=== PATIENT | male | born 1985 | race Caucasian/White ===

== ENCOUNTER 2019-01-30 17:05 | Emergency (ER) | payer SELFPAY ==
[2019-01-30] MEDS ORDERED: Promethazine HCl 25 MG/ML VIAL ONE (17:35)
[2019-01-30] MEDS ORDERED: Morphine 4 MG/ML VIAL ONE (17:37)
[2019-01-30] MEDS ORDERED: Pantoprazole 40 MG VIAL ONE (17:37)
[2019-01-30] MEDS ORDERED: Sodium Chloride 0.9% 1,000 ML ONE (17:39)
[2019-01-30 17:43] LABS: #Basophils 0.1 thou/uL (0.0-0.2); #Lymphocytes 2.3 thou/uL (1.20-3.40); #Monocytes 0.5 thou/uL (0.11-0.59); #Neutrophils 8.2 thou/uL (1.40-6.50); %Basophils 0.7 % (0.0-1.0); %Eosinophils 0.2 % (0.0-10.0); %Lymphocytes 20.8 % (21.0-51.0); %Monocytes 4.8 % (0.0-10.0); %Neutrophils 73.5 % (42.0-75.0); Hemoglobin 17.3 g/dL (14.0-18.0); Mean Corpuscular HGB CONC 33.7 g/dL (32.0-36.0); Mean Corpuscular Hemoglobin 29.8 pg (27.0-31.0); Mean Corpuscular Volume 88.4 fL (78.0-98.0); Mean Platelet Volume 10.6 fL (7.4-10.4); Platelet Count 275 thou/uL (130-400); RBC Distribution Width 10.9 % (11.5-14.5); Red Blood Cell (RBC) Count 5.82 mill/uL (4.70-6.10); White Blood Cell (WBC) Count 11.2 thou/uL (4.8-10.8)
[2019-01-30 17:58] LABS: Prothrombin Time 13.5 SEC (12.0-14.7)
[2019-01-30 17:59] LABS: PTT 27.9 SEC (22.9-36.1)
[2019-01-30 18:07] LABS: ALT (SGPT) 101 U/L (8-55); Albumin 5.3 g/dL (3.5-5.0); Alkaline Phosphatase 80 U/L (40-110); Anion Gap 20 mmol/L (10-20); BUN (Urea Nitrogen) 17 mg/dL (8.9-20.6); CK (CPK) 196 U/L (30-200); Calc. Creatinine Clearance 0 mL/min (70-130); Calcium 10.1 mg/dL (7.8-10.44); Carbon Dioxide 22 mmol/L (22-29); Chloride 103 mmol/L (98-107); Estimated GFR-MDRD 64; Globulin 3.4 g/dL (2.4-3.5); Glucose 116 mg/dL (70-105); Lipase 22 U/L (8-78); Potassium 4.3 mmol/L (3.5-5.1); Protein, Total 8.7 g/dL (6.0-8.3); Sodium 141 mmol/L (136-145)
[2019-01-30] MEDS ORDERED: Benzocaine 20% Spray 60 ML CAN ONE (18:10)
[2019-01-30 18:27] LABS: AST (SGOT) 57 U/L (5-34)
--- NOTE | 2019-01-30 19:04 | RAD ---
PORTABLE CHEST: 01/30/19 HISTORY: Abdominal pain. Lungs are clear. Heart and mediastinum appear normal. An NG tube passes through the EG junction. IMPRESSION: No acute chest finding. POS: OFF
== END 2019-01-30 20:10 | disposition left against medical advice (07) ==
LOC: NAV ERS 17:05
DX: K25.4 Chronic or unspecified gastric ulcer with hemorrhage (principal); F41.9 Anxiety disorder, unspecified; F32.9 Major depressive disorder, single episode, unspecified; F17.220 Nicotine dependence, chewing tobacco, uncomplicated; Z79.899 Other long term (current) drug therapy
CPT/HCPCS: 71045; 80053; 82550; 83690; 84484; 85025; 85610; 85730; 96365; 96375; C9113; J2270; J2550; J7050

== ENCOUNTER 2024-03-30 22:25 | Emergency (ER) | payer SELFPAY ==
[2024-03-30] MEDS ORDERED: Sulfameth/Trimethoprim DS 800-160mg TAB ONE (22:56)
== END 2024-03-30 23:15 | disposition home or self-care (01) ==
LOC: NAV ERS 22:25
DX: L02.01 Cutaneous abscess of face (principal); F17.220 Nicotine dependence, chewing tobacco, uncomplicated
CPT/HCPCS: 10060; 87070; 87205

== ENCOUNTER 2025-01-13 13:50 | Emergency (ER) | payer SELFPAY ==
[2025-01-13] MEDS ORDERED: Ketorolac Tromethamine 30 MG (1 mL) VIAL ONE (14:25)
[2025-01-13] MEDS ORDERED: Ondansetron PF 4 MG/2 ML Vial ONE (14:25)
[2025-01-13 14:42] LABS: #Basophils 0.2 thou/uL (0.0-0.2); #Eosinophils 0.1 thou/uL (0.0-0.7); #Lymphocytes 2.8 thou/uL (1.20-3.40); #Monocytes 0.3 thou/uL (0.11-0.59); #Neutrophils 4.7 thou/uL (1.40-6.50); %Basophils 2.6 % (0.0-1.0); %Eosinophils 0.9 % (0.0-10.0); %Lymphocytes 34.1 % (21.0-51.0); %Monocytes 4.1 % (0.0-10.0); %Neutrophils 58.4 % (42.0-75.0); Hematocrit 47.4 % (42.0-52.0); Hemoglobin 16.7 g/dL (14.0-18.0); Mean Corpuscular Hemoglobin 30.2 pg (27.0-31.0); Mean Corpuscular Volume 85.7 fl (78.0-98.0); Platelet Count 314 10x3/uL (130-400); Red Blood Cell (RBC) Count 5.53 mill/uL (4.70-6.10); White Blood Cell (WBC) Count 8.1 10x3/uL (4.8-10.8)
[2025-01-13 14:57] LABS: ALT (SGPT) 50 U/L (Less than 45); AST (SGOT) 33 U/L (11-34); Albumin 4.8 g/dL (3.1-4.5); Alkaline Phosphatase 70 U/L (40-110); Anion Gap 17 mmol/L (10-20); BUN (Urea Nitrogen) 13 mg/dL (8.9-20.6); Bilirubin, Total 0.5 mg/dL (0.3-1.2); Calc. Creatinine Clearance 0 mL/min (70-130); Calcium 10.0 mg/dL (7.8-10.44); Carbon Dioxide 23 mmol/L (22-29); Chloride 105 mmol/L (98-107); Globulin 3.1 g/dL (2.4-3.5); Glucose 112 mg/dL (70-105); Potassium 3.4 mmol/L (3.5-5.1); Sodium 142 mmol/L (136-145)
[2025-01-13] MEDS ORDERED: Cyclobenzaprine 10 MG TAB ONE (15:46)
[2025-01-13 16:29] LABS: Glucose, Urine (Dipstick) Negative (Negative); Leukocyte Negative (Negative); Protein, Urine (Dipstick) Negative (Neg-Trace); Specific Gravity, Urine 1.010 (1.005-1.030)
[2025-01-13 16:38] LABS: CAUTI Indications for Culture Fever or rigors; Cocaine Metabolite Screen Negative (Negative); THC/Cannabinoid Screen Negative (Negative); Tricyclic Screen Negative (Negative); WBC/HPF 0-3 HPF (0-3)
[2025-01-13 16:39] LABS: Urine Culture Reflex No No
== END 2025-01-13 16:56 | disposition home or self-care (01) ==
LOC: NAV ERS 13:50
DX: S43.402A Unspecified sprain of left shoulder joint, initial encounter (principal); S63.602A Unspecified sprain of left thumb, initial encounter; S39.012A Strain of muscle, fascia and tendon of lower back, initial encounter; S60.222A Contusion of left hand, initial encounter; R03.0 Elevated blood-pressure reading, without diagnosis of hypertension; W11.XXXA Fall on and from ladder, initial encounter
CPT/HCPCS: 29125; 72131; 72192; 80053; 80306; 81001; 85025; 93005; 96374; 96375; J1885; J2270; J2405; J7030